=== PATIENT | female | born 1965 | race Hispanic/Latino ===

== ENCOUNTER 2018-07-22 11:57 | Observation (INO) | payer OTHER ==
[~2018-07-22] VITALS: Ht 157.5 cm; Wt 79.2 kg
[2018-07-22] MEDS ORDERED: ASPIRIN 325 MG TABLET ONE (12:11)
[2018-07-22 12:35] LABS: EOSINOPHILS % (AUTO) 3.2 % (0.0-8.0); HEMATOCRIT 41.3 % (36-48); MEAN CORPUSCULAR HEMOGLOBIN 28.7 pg (27.0-33.0); MEAN CORPUSCULAR HGB CONC 33.5 g/dL (32.0-36.0); MEAN CORPUSCULAR VOLUME 85.7 fL (79-99); NEUTROPHILS % (AUTO) 63.8 % (40.0-77.0); PLATELET COUNT (AUTO) 245 K/uL (130-400); RED BLOOD CELL COUNT(AUTO) 4.82 MIL/uL (4.00-5.50); RED CELL DISTRIBUTION WIDTH 14.3 % (11.0-15.5); WHITE BLOOD COUNT (AUTO) 7.7 K/uL (4.8-10.8)
[2018-07-22 12:43] LABS: CREATININE 0.5 mg/dL (0.5-1.5); POTASSIUM 4.2 mmol/L (3.5-5.1)
[2018-07-22 12:46] LABS: INR 0.92 (0.85-1.15); PARTIAL THROMBOPLASTIN TIME 19.5 SEC (26.3-35.5); PROTHROMBIN TIME 9.7 SEC (9.6-11.6)
[2018-07-22 12:51] LABS: ALBUMIN 3.7 g/dL (3.5-5.0); BILIRUBIN,TOTAL 0.2 mg/dL (0.2-1.0); TOTAL PROTEIN, SERUM 7.4 g/dL (6.0-8.3)
[2018-07-22 13:00] LABS: APPEARANCE,URINE Clear (CLEAR); BILIRUBIN,URINE Negative (NEGATIVE); COLOR,URINE Yellow (YELLOW); GLUCOSE, URINE (UA) Negative (NEGATIVE); KETONES,URINE Negative (NEGATIVE); LEUKOCYTE ESTERASE ,URINE Trace (NEGATIVE); NITRATE,URINE Negative (NEGATIVE); OCCULT BLOOD,URINE Negative (NEGATIVE); PROTEIN,URINE Negative (NEGATIVE); UROBILINOGEN,URINE 0.2 mg/dL (0.2-1.0)
[2018-07-22 13:10] LABS: BACTERIA,URINE Rare /HPF (None Seen); RBC,URINE None Seen /HPF (0-1); SQUAMOUS EPITHELIAL CELL,UR Rare /HPF (0-2); TRANSITIONAL EPI CELLS,URINE Rare /HPF (None Seen); WBC,URINE 0-1 /HPF (0-1)
[2018-07-22 17:15] VITALS: BP 133/72
[2018-07-22] MEDS ORDERED: ATOR40TA71 PO (18:10)
[2018-07-22] MEDS ORDERED: BENA20TA10 PO (18:10)
[2018-07-22] MEDS ORDERED: AMLO2.5T3 PO (18:10)
[2018-07-22] MEDS: SODIUM CHLORIDE 0.9% 1000ML 1,000 ML IV SCH (19:26)
[2018-07-22 20:00] VITALS: BP 127/67
[2018-07-22 23:00] VITALS: BP 115/65
[2018-07-23 03:00] VITALS: BP 129/71
[2018-07-23 08:00] VITALS: BP 146/78
[2018-07-23 11:00] VITALS: BP_SYST 121; BP_SYST 154; BP_SYST 157; BP_DIAS 41; BP_DIAS 55; BP_DIAS 74
[2018-07-23] MEDS: PANTOPRAZOLE SODIUM 40 MG TABLET.DR PO SCH (11:02)
[2018-07-23] MEDS: ASPIRIN 81MG TAB.CHEW PO SCH (11:02)
[2018-07-23] MEDS: SODIUM CHLORIDE 0.9% 1000ML 1,000 ML IV SCH (12:00)
[2018-07-23 16:00] VITALS: BP 138/66
[2018-07-23 20:00] VITALS: BP 158/90
[2018-07-24] VITALS: BP 140/70
[2018-07-24 04:00] VITALS: BP 146/78
[2018-07-24 05:05] LABS: BASOPHILS % (AUTO) 1.2 % (0.0-5.0); EOSINOPHILS % (AUTO) 4.7 % (0.0-8.0); HEMATOCRIT 38.7 % (36-48); LYMPHOCYTES % (AUTO) 32.8 % (21.0-51.0); MEAN CORPUSCULAR HEMOGLOBIN 29.7 pg (27.0-33.0); MEAN CORPUSCULAR HGB CONC 34.6 g/dL (32.0-36.0); MONOCYTES % (AUTO) 7.3 % (3.0-13.0); PLATELET COUNT (AUTO) 273 K/uL (130-400); RED BLOOD CELL COUNT(AUTO) 4.49 MIL/uL (4.00-5.50); RED CELL DISTRIBUTION WIDTH 14.6 % (11.0-15.5); WHITE BLOOD COUNT (AUTO) 7.1 K/uL (4.8-10.8)
[2018-07-24 05:25] LABS: CREATININE 0.7 mg/dL (0.5-1.5)
[2018-07-24] MEDS ORDERED: REGADENOSON 0.4 MG/5 ML PF SYG IVP SCH (07:30)
[2018-07-24 08:00] VITALS: BP 133/64
[2018-07-24] MEDS: SODIUM CHLORIDE 0.9% 1000ML 1,000 ML IV SCH (11:58)
[2018-07-24] MEDS: PANTOPRAZOLE SODIUM 40 MG TABLET.DR PO SCH (11:58)
[2018-07-24] MEDS: ASPIRIN 81MG TAB.CHEW PO SCH (11:59)
[2018-07-24 12:00] VITALS: BP 156/89
[2018-07-24 16:00] VITALS: BP 130/62
== END 2018-07-24 18:00 | disposition home or self-care (01) ==
LOC: EDH 11:57 → EDHIP 15:00 → 3CH 17:02
PROVIDERS: ADMIT Internal Medicine; ATTEND Internal Medicine
DX: R07.89 Other chest pain (principal); I10 Essential (primary) hypertension; E78.00 Pure hypercholesterolemia, unspecified; F41.9 Anxiety disorder, unspecified; Z90.710 Acquired absence of both cervix and uterus
CPT/HCPCS: 36415 ×3; 71045; 78452; 80048; 80053; 81001; 83690; 84484 ×2; 85025 ×2; 85610; 85730; 86677; 93005; 93017; 93306; 99285; A4510; A9500 ×4; G0378 ×51; J2785; 96374

== ENCOUNTER → 2021-03-28 | Outpatient (CLI) | payer OTHER ==
[~2021-03-28] MED LIST: AMLO2.5T4 PO; ATOR40TA71 PO; BENA20TA10 PO
== END | disposition home or self-care (01) ==
LOC: RAH 14:19
PROVIDERS: ATTEND Family Medicine
DX: Z13.6 Encounter for screening for cardiovascular disorders (principal)
CPT/HCPCS: 75571

== ENCOUNTER 2022-12-20 23:46 | Observation (INO) | payer BC, OTHER ==
[~2022-12-20] VITALS: Ht 152.4 cm; Wt 87.2 kg
[~2022-12-20 23:46] MED LIST changes: +BENA-8 PO; -BENA20TA10 PO
[2022-12-21] VITALS (23 sets, daily range): BP systolic 107–143; BP diastolic 53–74
[2022-12-21] MEDS ORDERED: LACTATED RINGERS 1000ML 1,000 ML IV ONE (01:00)
[2022-12-21] MEDS ORDERED: MORPHINE 2 MG SYG IVP ONE (01:00)
[2022-12-21] MEDS ORDERED: ONDANSETRON 4MG INJ IVP ONE (01:00)
[2022-12-21 01:54] LABS: BASOPHILS % (AUTO) 0.5 % (0.0-5.0); EOSINOPHILS % (AUTO) 2.3 % (0.0-8.0); HEMATOCRIT 43.4 % (36-48); LYMPHOCYTES % (AUTO) 12.1 % (21.0-51.0); MEAN CORPUSCULAR HEMOGLOBIN 28.6 pg (27.0-33.0); MEAN CORPUSCULAR HGB CONC 33.6 g/dL (32.0-36.0); MEAN CORPUSCULAR VOLUME 84.9 fL (79-99); MONOCYTES % (AUTO) 4.4 % (3.0-13.0); NEUTROPHILS % (AUTO) 80.4 % (40.0-77.0); PLATELET COUNT (AUTO) 314 K/uL (130-400); RED BLOOD CELL COUNT(AUTO) 5.11 MIL/uL (4.00-5.50); RED CELL DISTRIBUTION WIDTH 13.2 % (11.0-15.5); WHITE BLOOD COUNT (AUTO) 14.7 K/uL (4.8-10.8)
[2022-12-21] MEDS ORDERED: HYDROMORPHONE 0.5 MG SYG (0.5MG/0.5ML) IVP ONE (02:00)
[2022-12-21 02:08] LABS: APPEARANCE,URINE CLEAR (CLEAR); BILIRUBIN,URINE NEGATIVE (NEGATIVE); GLUCOSE, URINE (UA) NEGATIVE (NEGATIVE); KETONES,URINE NEGATIVE (NEGATIVE); LEUKOCYTE ESTERASE ,URINE 75 Leu/uL (NEGATIVE); NITRATE,URINE NEGATIVE (NEGATIVE); OCCULT BLOOD,URINE NEGATIVE (NEGATIVE); PROTEIN,URINE NEGATIVE (NEGATIVE); UROBILINOGEN,URINE 0.2 mg/dL (0.2-1.0)
[2022-12-21 02:19] LABS: COLOR,URINE Light-Yellow (YELLOW)
[2022-12-21 02:26] LABS: MUCUS,URINE RARE LPF (None Seen); RBC,URINE 0-1 /HPF (0-1); SQUAMOUS EPITHELIAL CELL,UR RARE /HPF (0-2)
[2022-12-21 02:33] LABS: ALBUMIN 3.4 g/dL (3.5-5.0); CREATININE 0.7 mg/dL (0.5-1.5); POTASSIUM 3.7 mmol/L (3.5-5.1); TOTAL PROTEIN, SERUM 7.6 g/dL (6.0-8.3)
[2022-12-21] MEDS ORDERED: IOHEXOL 350 MG/ML 100ML INFUS..BTL IV ONE (02:53)
[2022-12-21] MEDS ORDERED: ACETAMINOPHEN 325 MG TAB PO PRN ×2 (05:30)
[2022-12-21 06:01] LABS: HEMOGLOBIN A1C 5.7 % (4.0-6.0)
[2022-12-21] MEDS ORDERED: MORPHINE 2 MG SYG IVP PRN (07:30)
[2022-12-21] MEDS ORDERED: HYDROMORPHONE 0.5 MG SYG (0.5MG/0.5ML) IVP PRN (07:30)
[2022-12-21] MEDS ORDERED: ZOSYN 3.375GM+NS 50ML 50 ML IVPB ONE (08:49)
[2022-12-21] MEDS: ZOSYN 3.375GM+NS 50ML 50 ML IVPB SCH ×2 (08:50→20:40)
[2022-12-21] MEDS ORDERED: ENOXAPARIN SODIUM 40 MG/0.4 ML SYRINGE SQ SCH (09:00)
[2022-12-21] MEDS ORDERED: BUPIVACAINE/PF 0.25% 10ML VIAL IJ ONE (09:04)
[2022-12-21] MEDS: HYDROMORPHONE 0.5 MG SYG (0.5MG/0.5ML) IVP PRN ×2 (09:19→14:14)
[2022-12-21] MEDS ORDERED: MIDAZOLAM HCL 1 MG/ML 2ML VIAL ONE (10:21)
[2022-12-21] MEDS ORDERED: PROPOFOL 10 MG/ML 20ML VIAL IV ONE (10:22)
[2022-12-21] MEDS ORDERED: FENTANYL CITRATE PF 50 MCG/1 ML 5ML AMP IV ONE (10:22)
[2022-12-21] MEDS ORDERED: SCOPOLAMINE HYDROBROMIDE 1 EACH ADH..PATCH TD ONE (10:27)
[2022-12-21] MEDS ORDERED: ROCURONIUM 10MG/1ML SYR 10 MG/ML ML ONE (10:42)
[2022-12-21] MEDS ORDERED: EPHEDRINE SULFATE 50 MG/ML AMPULE ONE (11:04)
[2022-12-21] MEDS ORDERED: DEXAMETHASONE SOD PHOSPHATE 10MG/ML 1ML VIAL ONE (11:23)
[2022-12-21] MEDS ORDERED: KETOROLAC 30MG VIAL (30MG/ML) ONE (11:25)
[2022-12-21] MEDS ORDERED: FENTANYL CITRATE PF 50 MCG/1 ML 2ML VIAL ONE (11:25)
[2022-12-21] MEDS ORDERED: NEOSTIGMINE 5MG/5ML SYR IV ONE (11:27)
[2022-12-21] MEDS ORDERED: GLYCOPYRROLATE 1 MG/5 ML SYRINGE ONE (11:27)
[2022-12-21] MEDS ORDERED: MEPERIDINE-PF 25 MG/ML SYG ONE ×2 (12:16→12:25)
[2022-12-21] MEDS: ONDANSETRON 4MG INJ IV PRN ×2 (12:34→20:41)
[2022-12-22] VITALS: BP 115/49
[2022-12-22 04:00] VITALS: BP 104/56
[2022-12-22] MEDS: ZOSYN 3.375GM+NS 50ML 50 ML IVPB SCH ×2 (05:13→12:10)
[2022-12-22 08:00] VITALS: BP 114/67
[2022-12-22] MEDS ORDERED: TRAM50TA4 PO (09:09)
[2022-12-22 11:30] VITALS: BP 128/56
== END 2022-12-22 18:45 | disposition home or self-care (01) ==
LOC: EDH 23:46 → INTOOBSV 23:47 → EDHIP 23:47 → EDH 12-21 02:20 → 3CH 12-21 13:10
PROVIDERS: ADMIT Internal Medicine; ATTEND Internal Medicine
DX: K35.80 Unspecified acute appendicitis (principal); Z20.822 Contact with and (suspected) exposure to COVID-19; J45.909 Unspecified asthma, uncomplicated; I10 Essential (primary) hypertension; E78.00 Pure hypercholesterolemia, unspecified; E66.01 Morbid (severe) obesity due to excess calories; E44.1 Mild protein-calorie malnutrition; E87.1 Hypo-osmolality and hyponatremia; Z79.899 Other long term (current) drug therapy; Z90.710 Acquired absence of both cervix and uterus
CPT/HCPCS: 99285; 44970; 96376; 96361; 96365; 96366 ×2; 96375; 83036; 80053; 83690; 85025; 87088; 81001; 36415; 87635; 74177; 93005; J7030; A4600; A4215; J3010 ×2; J3490 ×3; J1100; J2710; J2250; J2704; J2405 ×3; J1885; J2543 ×4; J2175 ×2; J1170 ×3; Q9967; A6206; A4649 ×3; G0378 ×7